=== PATIENT | male | born 1990 | race Caucasian/White ===

== ENCOUNTER 2017-09-13 22:49 | Emergency (ER) | payer OTHER ==
[2017-09-13] MEDS ORDERED: ONDANSETRON ODT 4 MG TAB PO STA (22:59)
[2017-09-13] MEDS ORDERED: HYDROcodone/APAP 7.5-325MG 1 EACH TAB PO ONE (23:21)
--- NOTE | 2017-09-13 23:24 | ED ---
General Adult HPI - General Chief complaint: Recheck/Abnormal Lab/Rx Stated complaint: vomiting blood Time Seen by Provider: 09/13/17 22:58 Source: patient Mode of arrival: ambulatory Limitations: no limitations - History of Present Illness Initial comments: This patient is 27-year-old man who presents to be evaluated for post dental extraction bleeding. Patient had extraction of 4 was some teeth at the [facility] in [place] this afternoon and was discharged from there approximately 3 and afternoon. He had been doing fairly well tonight and then had an episode of vomiting with some blood in it. The patient notes that he continues to have some oozing from the extraction sites area he does note that after had vomiting he lost a gauze that was at the sites. Patient is not having symptoms of anemia or hypovolemia, he denies chest pain, dyspnea, diaphoresis, lightheadedness or palpitations. No syncope. -: hour(s) Location: mouth Consistency: constant Improves with: none Worsens with: none Associated Symptoms: nausea/vomiting Treatments Prior to Arrival: other (Hydrocodone at 4 PM) - Related Data Home Medications Medication Instructions Recorded Confirmed ARIPiprazole [Abilify] 10 mg PO HS 09/13/17 09/13/17 Citalopram Hydrobromide [CeleXA] 20 mg PO DAILY 09/13/17 09/13/17 HYDROcodone/APAP 10-325MG [[place] 1 tab PO Q6HR PRN 09/13/17 09/13/17 10-325] [place] Carbonate 150 mg PO TID 09/13/17 09/13/17 Allergies Allergy/AdvReac Type Severity Reaction Status Date / Time No Known Allergies Allergy Verified 09/13/17 23:28 Review of Systems ROS Statement: Those systems with pertinent positive or pertinent negative responses have been documented in the HPI. ROS Other: All systems not noted in ROS Statement are negative. Constitutional: Denies: fever, chills, weakness ENT: Reports: dental pain Respiratory: Denies: cough, dyspnea Cardiovascular: Denies: chest pain, palpitations, syncope Gastrointestinal: Reports: vomiting, hematemesis. Denies: abdominal pain Neurological: Denies: headache, weakness Hematological/Lymphatic: Denies: easy bleeding Past Medical History Past Medical History: No Reported History History of Any Multi-Drug Resistant Organisms: None Reported Past Surgical History: Appendectomy, Hernia Repair, Tonsillectomy Additional Past Surgical History / Comment(s): wisdom teeth Past Psychological History: Bipolar Smoking Status: Never smoker Past Alcohol Use History: Occasional Past Drug Use History: Marijuana General Exam Limitations: no limitations General appearance: alert, in no apparent distress Head exam: Present: atraumatic, normocephalic Eye exam: Present: normal appearance. Absent: scleral icterus, conjunctival injection ENT exam: Present: normal oropharynx, other (The patient does have some continued slow oozing from the right mandibular extraction site.) Neck exam: Present: normal inspection, full ROM. Absent: tenderness, meningismus Respiratory exam: Present: normal lung sounds bilaterally. Absent: respiratory distress, wheezes, rales, rhonchi, stridor Cardiovascular Exam: Present: regular rate, normal rhythm, normal heart sounds. Absent: systolic murmur, diastolic murmur, rubs, gallop GI/Abdominal exam: Present: soft. Absent: distended, tenderness, guarding, rebound Neurological exam: Present: alert Skin exam: Present: warm, dry, intact, normal color. Absent: rash Course Vital Signs 09/13/17 09/13/17 22:52 23:27 Temperature 98.6 F Pulse Rate 111 H 86 Respiratory 20 18 Rate Blood Pressure 166/81 123/68 O2 Sat by Pulse 96 98 Oximetry Disposition Clinical Impression: Vomiting blood, Status post tooth extraction Disposition: HOME SELF-CARE Condition: Good Instructions: Hematemesis (ED) Is patient prescribed a controlled substance at d/c from ED?: No Referrals: [facility],Clinic [Primary Care Provider] - 1-2 days
[2017-09-13 23:35] VITALS: RESP 18
[2017-09-14 00:35] VITALS: BP 117/77; PULSE 88; TEMP 98.2
== END 2017-09-14 00:37 | disposition home or self-care (01) ==
LOC: EC 22:49
DX: K92.0 Hematemesis (principal); K08.409 Partial loss of teeth, unspecified cause, unspecified class; F31.9 Bipolar disorder, unspecified; Z79.899 Other long term (current) drug therapy
CPT/HCPCS: 99283

== ENCOUNTER 2019-04-30 22:10 | Emergency (ER) | payer OTHER ==
--- NOTE | 2019-04-30 22:41 | ED ---
Psych HPI - General Chief Complaint: Psychiatric Symptoms Stated Complaint: mental health Time Seen by Provider: 04/30/19 22:29 Source: patient Mode of arrival: ambulatory - History of Present Illness Initial Comments: 29-year-old male patient presents to the emergency department today for evaluation of suicidal ideation. When asked what is being admitted to the hospital he states, "I want to kill the shit out of myself". He states that today he was cutting a hole in a belt to hang himself when his mother caught him and called the police. Patient states that he has been feeling suicidal for quite some time. Patient denies any specific change in his life that caused him to do this today. Patient does admit to taking 2 tablets of "pressed Xanax", states that someone may the tablets, he states there is some extra slip filler the pills he is unsure what it is. Patient states he currently feels well. Denies any hallucinations. Denies any homicidal ideation. Patient denies any headache, neck pain, back pain, chest pain, shortness of breath, dizziness, weakness, abdominal pain, nausea, vomiting, or difficulties with bowel movements or urination. - Related Data Home Medications Medication Instructions Recorded Confirmed ARIPiprazole [Abilify] 10 mg PO HS 09/13/17 09/13/17 Citalopram Hydrobromide [CeleXA] 20 mg PO DAILY 09/13/17 09/13/17 HYDROcodone/APAP 10-325MG [[place] 1 tab PO Q6HR PRN 09/13/17 09/13/17 10-325] [place] Carbonate 150 mg PO TID 09/13/17 09/13/17 Allergies Allergy/AdvReac Type Severity Reaction Status Date / Time No Known Allergies Allergy Verified 04/30/19 22:22 Review of Systems ROS Statement: Those systems with pertinent positive or pertinent negative responses have been documented in the HPI. ROS Other: All systems not noted in ROS Statement are negative. Past Medical History Past Medical History: No Reported History History of Any Multi-Drug Resistant Organisms: None Reported Past Surgical History: Appendectomy, Hernia Repair, Tonsillectomy Additional Past Surgical History / Comment(s): wisdom teeth Past Psychological History: Anxiety, Bipolar, Depression, PTSD Smoking Status: Never smoker Past Alcohol Use History: Occasional Past Drug Use History: Marijuana General Exam Limitations: no limitations General appearance: alert, in no apparent distress, other (This is a well- developed, well-nourished adult male patient in no acute distress. Vital signs upon presentation are temperature 98.1F, pulse 68, respirations 16, blood pressure 136/93, pulse ox 100% on room air.) Eye exam: Present: normal appearance, PERRL, EOMI. Absent: scleral icterus, conjunctival injection, periorbital swelling ENT exam: Present: normal exam, normal oropharynx, mucous membranes moist Respiratory exam: Present: normal lung sounds bilaterally. Absent: respiratory distress, wheezes, rales, rhonchi, stridor Cardiovascular Exam: Present: regular rate, normal rhythm, normal heart sounds. Absent: systolic murmur, diastolic murmur, rubs, gallop, clicks GI/Abdominal exam: Present: soft, normal bowel sounds. Absent: distended, tenderness, guarding, rebound, rigid Neurological exam: Present: alert, oriented X3, CN II-XII intact Psychiatric exam: Present: normal affect, normal mood, depressed, suicidal ideation. Absent: homicidal ideation Skin exam: Present: warm, dry, intact, normal color. Absent: rash Course Vital Signs 04/30/19 05/01/19 05/01/19 22:18 02:20 04:33 Temperature 98.1 F 97.4 F L 98.1 F Pulse Rate 68 70 64 Respiratory 16 20 18 Rate Blood Pressure 136/93 129/79 114/66 O2 Sat by Pulse 100 98 98 Oximetry 05/01/19 13:06 Temperature 98.2 F Pulse Rate 62 Respiratory 18 Rate Blood Pressure 121/80 O2 Sat by Pulse 99 Oximetry Medical Decision Making - Medical Decision Making 29-year-old male patient presented to the emergency department today for evaluation of suicidal ideation. Patient was found by his mother cutting a hole in a belt in order to hang himself. Patient does admit to suicidal ideation. Denies alcohol use. Does admit to taking 2 Xanax tablets earlier today. Patient was seen and evaluated by emergency psychiatric services. Solute benefit from inpatient admission. [facility] when [facility] bed becomes available. - Lab Data Result diagrams: 05/01/19 03:21 05/01/19 03:21 Lab Results 04/30/19 04/30/19 05/01/19 Range/Units 22:30 22:38 03:21 WBC (3.8-10.6) k/uL RBC (4.30-5.90) m/uL Hgb (13.0-17.5) gm/dL Hct (39.0-53.0) % MCV (80.0-100.0) fL MCH (25.0-35.0) pg MCHC (31.0-37.0) g/dL RDW (11.5-15.5) % Plt Count (150-450) k/uL Neutrophils % % Lymphocytes % % Monocytes % % Eosinophils % % Basophils % % Neutrophils # (1.3-7.7) k/uL Lymphocytes # (1.0-4.8) k/uL Monocytes # (0-1.0) k/uL Eosinophils # (0-0.7) k/uL Basophils # (0-0.2) k/uL Sodium 139 (137-145) mmol/L Potassium 3.8 (3.5-5.1) mmol/L Chloride 105 (98-107) mmol/L Carbon Dioxide 29 (22-30) mmol/L Anion Gap 5 mmol/L BUN 13 (9-20) mg/dL Creatinine 0.93 (0.66-1.25) mg/dL Est GFR (CKD-EPI)AfAm >90 (>60 ml/min/1.73 sqM) Est GFR (CKD-EPI)NonAf >90 (>60 ml/min/1.73 sqM) Glucose 108 H (74-99) mg/dL Calcium 9.0 (8.4-10.2) mg/dL Total Bilirubin 0.5 (0.2-1.3) mg/dL AST 24 (17-59) U/L ALT 22 (4-49) U/L Alkaline Phosphatase 53 (38-126) U/L Total Protein 6.3 (6.3-8.2) g/dL Albumin 4.0 (3.5-5.0) g/dL TSH 1.020 (0.465-4.680) mIU/L Urine Color Yellow Urine Appearance Cloudy (Clear) Urine pH 6.0 (5.0-8.0) Ur Specific [place] 1.025 (1.001-1.035) Urine Protein Negative (Negative) Urine Glucose (UA) Negative (Negative) Urine Ketones Negative (Negative) Urine Blood Negative (Negative) Urine Nitrite Negative (Negative) Urine Bilirubin Negative (Negative) Urine Urobilinogen <2.0 (<2.0) mg/dL Ur Leukocyte Esterase Negative (Negative) Urine Opiates Screen Not Detected (NotDetected) Ur Oxycodone Screen Not Detected (NotDetected) Urine Methadone Screen Not Detected (NotDetected) Ur Propoxyphene Screen Not Detected (NotDetected) Ur Barbiturates Screen Not Detected (NotDetected) U Tricyclic Antidepress Not Detected (NotDetected) Ur Phencyclidine Scrn Not Detected (NotDetected) Ur Amphetamines Screen Not Detected (NotDetected) U Methamphetamines Scrn Detected H (NotDetected) U Benzodiazepines Scrn Detected H (NotDetected) [place] <0.2 mmol/L Urine Cocaine Screen Not Detected (NotDetected) U Marijuana (THC) Screen Detected H (NotDetected) 05/01/19 Range/Units 03:21 WBC 6.7 (3.8-10.6) k/uL RBC 5.28 (4.30-5.90) m/uL Hgb 15.7 (13.0-17.5) gm/dL Hct 46.1 (39.0-53.0) % MCV 87.3 (80.0-100.0) fL MCH 29.7 (25.0-35.0) pg MCHC 34.1 (31.0-37.0) g/dL RDW 12.5 (11.5-15.5) % Plt Count 206 (150-450) k/uL Neutrophils % 51 % Lymphocytes % 38 % Monocytes % 5 % Eosinophils % 2 % Basophils % 1 % Neutrophils # 3.5 (1.3-7.7) k/uL Lymphocytes # 2.6 (1.0-4.8) k/uL Monocytes # 0.4 (0-1.0) k/uL Eosinophils # 0.2 (0-0.7) k/uL Basophils # 0.0 (0-0.2) k/uL Sodium (137-145) mmol/L Potassium (3.5-5.1) mmol/L Chloride (98-107) mmol/L Carbon Dioxide (22-30) mmol/L Anion Gap mmol/L BUN (9-20) mg/dL Creatinine (0.66-1.25) mg/dL Est GFR (CKD-EPI)AfAm (>60 ml/min/1.73 sqM) Est GFR (CKD-EPI)NonAf (>60 ml/min/1.73 sqM) Glucose (74-99) mg/dL Calcium (8.4-10.2) mg/dL Total Bilirubin (0.2-1.3) mg/dL AST (17-59) U/L ALT (4-49) U/L Alkaline Phosphatase (38-126) U/L Total Protein (6.3-8.2) g/dL Albumin (3.5-5.0) g/dL TSH (0.465-4.680) mIU/L Urine Color Urine Appearance (Clear) Urine pH (5.0-8.0) Ur Specific [place] (1.001-1.035) Urine Protein (Negative) Urine Glucose (UA) (Negative) Urine Ketones (Negative) Urine Blood (Negative) Urine Nitrite (Negative) Urine Bilirubin (Negative) Urine Urobilinogen (<2.0) mg/dL Ur Leukocyte Esterase (Negative) Urine Opiates Screen (NotDetected) Ur Oxycodone Screen (NotDetected) Urine Methadone Screen (NotDetected) Ur Propoxyphene Screen (NotDetected) Ur Barbiturates Screen (NotDetected) U Tricyclic Antidepress (NotDetected) Ur Phencyclidine Scrn (NotDetected) Ur Amphetamines Screen (NotDetected) U Methamphetamines Scrn (NotDetected) U Benzodiazepines Scrn (NotDetected) [place] mmol/L Urine Cocaine Screen (NotDetected) U Marijuana (THC) Screen (NotDetected) Disposition Clinical Impression: Suicidal ideation Disposition: OTHER INSTITUTION NOT DEFINED Referrals: [facility],Clinic [Primary Care Provider] - 1-2 days - Out of Hospital Transfer - Req. Specs Out of Hospital Transfer - Requested Specifics: Psychiatric Non-ICU
[2019-04-30 23:03] LABS: Amphetamine Screen,Urine Not Detected (NotDetected); Barbiturate Screen,Urine Not Detected (NotDetected); Benzodiazepines Screen,Urine Detected (NotDetected); Cocaine Screen,Urine Not Detected (NotDetected); Methadone Screen, Urine Not Detected (NotDetected); Opiate Screen,Urine Not Detected (NotDetected); Oxycodone Screen, Urine Not Detected (NotDetected); Phencyclidine Screen,Urine Not Detected (NotDetected); Tricyclic Antidepressant,Urine Not Detected (NotDetected); Urn Cannabinoid Scrn Detected (NotDetected)
[2019-05-01 02:16] LABS: Appearance,Urine Cloudy (Clear); Color,Urine Yellow; Specific Gravity,Urine 1.025 (1.001-1.035)
[2019-05-01 02:17] LABS: Bilirubin,Urine Negative (Negative); Blood,Urine Negative (Negative); Glucose,Urine (UA) Negative (Negative); Ketones,Urine Negative (Negative); Leukocyte Esterase,Urine Negative (Negative); Nitrite,Urine Negative (Negative); Protein,Urine Negative (Negative); Urobilinogen,Urine <2.0 mg/dL (<2.0)
[2019-05-01 03:32] LABS: Basophils % (A) 1 %; Eosinophils # (A) 0.2 k/uL (0-0.7); Eosinophils % (A) 2 %; HCT 46.1 % (39.0-53.0); HGB 15.7 gm/dL (13.0-17.5); Lymphocytes # (A) 2.6 k/uL (1.0-4.8); Lymphocytes % (A) 38 %; MCH 29.7 pg (25.0-35.0); MCHC 34.1 g/dL (31.0-37.0); MCV 87.3 fL (80.0-100.0); Mean Platelet Volume 7.9; Monocytes # (A) 0.4 k/uL (0-1.0); Monocytes % (A) 5 %; Neutrophils # (A) 3.5 k/uL (1.3-7.7); Neutrophils % (A) 51 %; Platelet Count 206 k/uL (150-450); RBC 5.28 m/uL (4.30-5.90); RDW 12.5 % (11.5-15.5); WBC 6.7 k/uL (3.8-10.6)
[2019-05-01 03:47] LABS: ALT 22 U/L (4-49); AST 24 U/L (17-59); African American GFR (CKD) >90 (>60 ml/min/1.73 sqM); Alkaline Phosphatase 53 U/L (38-126); Anion Gap 5 mmol/L; Blood Urea Nitrogen 13 mg/dL (9-20); Carbon Dioxide 29 mmol/L (22-30); Chloride 105 mmol/L (98-107); Glucose 108 mg/dL (74-99); Lithium <0.2 mmol/L; Non-African American GFR(CKD) >90 (>60 ml/min/1.73 sqM); Potassium 3.8 mmol/L (3.5-5.1); Sodium 139 mmol/L (137-145); Total Bilirubin 0.5 mg/dL (0.2-1.3); Total Protein 6.3 g/dL (6.3-8.2)
[2019-05-01 04:34] VITALS: RESP 18
[2019-05-01 13:07] VITALS: BP 121/80; PULSE 62; TEMP 98.2
== END 2019-05-01 13:06 | disposition other institution (70) ==
LOC: EC 22:10
DX: R45.851 Suicidal ideations (principal); F41.9 Anxiety disorder, unspecified; F31.9 Bipolar disorder, unspecified; Z79.899 Other long term (current) drug therapy
CPT/HCPCS: 36415; 80053; 80178; 80306; 82075; 84443; 85025; 99285